=== PATIENT | female | born 2000 | race Hispanic/Latino ===

== ENCOUNTER 2024-11-29 01:51 | Emergency (ER) | payer SELFPAY ==
--- NOTE | ~2024-11-29 | US_ITS ---
Pelvic ultrasound. Clinical History: Torsion Technique: Realtime transabdominal scanning of the pelvis was performed. Color flow Doppler and Doppl er spectral analysis were performed. Findings: The uterus is anteverted. The endometrial stripe has a thickness of 4 mm. No focal mass is identified. The right ovary measures 2.6 x 3 0.4, 3.7 cm. No significant right ovarian or adnexal mass is seen. The left ovary measures 2.7 x 2.3 x 2.2 cm. No significant left ovarian or adnexal mass is seen. There is probable vascular flow in both ovaries on Doppler spectral analysis. There is no evidence of free fluid in the cul de sac. Impression: No definite abnormality seen. No distinct evidence for torsion. Reviewed, dictated and finalized at [facility]. Impression: No definite abnormality seen. No distinct evidence for torsion.
--- NOTE | ~2024-11-29 | CT_ITS ---
Non-contrast CT scan of the Abdomen and Pelvis Clinical indication: Abdominal pain Technique: 2.5 mm axial scans were obtained through the abdomen and pelvis without intravenous or or al contrast. Dose reduction technique was used on this scan by utilizing automated exposure control a nd iterative reconstruction technique. The dose-length product (DLP) was 679.60 mGy-cm. Findings: Images through the lung bases reveal no abnormalities. 5 mm left UVJ stone present, with mild left hydroureteronephrosis. Right kidney and right ureter are unremarkable. The liver, spleen, pancreas, gallbladder, and adrenals appear normal. There is no aortic aneurysm. There is no evidence of bowel obstruction. Images through the pelvis were performed. There is no evidence of ascites or lymphadenopathy. Urinary bladder unremarkable. No pelvic mass evident. Impression: 5 mm left UVJ stone with mild left hydroureteronephrosis. Reviewed, dictated and finalized at [facility]. Impression: 5 mm left UVJ stone with mild left hydroureteronephrosis.
[2024-11-29 01:58] VITALS: BP 128/89; PULSE 96; RESP 24; TEMP 36.6; O2SAT 100
--- NOTE | 2024-11-29 02:07 | PC.NURSE ---
Call placed to radiology to page out US for r/o ovarian torsion.
--- NOTE | 2024-11-29 02:08 | ED_ITS ---
HPI - General Adult General Chief complaint: Abdominal Pain Stated complaint: abd pain and vomiting Time Seen by Provider: 11/29/24 02:00 History of Present Illness HPI narrative: 24-year-old female history of ovarian cyst presents to the emergency department for evaluation for acute onset of left lower quadrant pain. Patient denies any prior history kidney stones. Patient is uncomfortable upon arrival emergency department. Patient is having associated nausea vomiting. Related Data Allergies Allergy/AdvReac Type Severity Reaction Status Date / Time No Known Allergies Allergy Verified 11/29/24 02:05 Review of Systems 2 Review of Systems: All systems reviewed & are unremarkable except as noted in HPI and below Exam 2 Narrative: APPEARANCE: Uncomfortable appearing HEAD: normocephalic, atraumatic. EYES: PERRLA/EOMI, conjunctivae clear. NOSE: Normal no drainage EARS:TMS clear with good light reflex. THROAT: Pharynx clear, no exudate. NECK: Supple. No adenopathy, no masses. RESPIRATORY: Airway patent, respirations nonlabored. Clear to auscultation bilaterally, no rales, rhonchi, wheezing. CARDIOVASCULAR: Regular rate and rhythm without murmurs rubs or gallops. ABDOMINAL: Left lower quadrant tenderness to palpation MUSCULOSKELETAL: Moves all extremities. Strength/ROM intact, No edema, No calf tenderness. NEURO: Alert. Cranial nerves II through XII intact. Good gait. Good coordination SKIN: Warm, dry. Normal Color Course Vital Signs Vital signs: Vital Signs Temperature 97.9 F 11/29/24 01:58 Pulse Rate 96 11/29/24 01:58 Respiratory Rate 24 H 11/29/24 01:58 Blood Pressure 128/89 11/29/24 01:58 Pulse Oximetry 100 11/29/24 01:58 Oxygen Delivery Room Air 11/29/24 01:58 Temperature 97.9 F 11/29/24 01:58 Pulse Rate 83 11/29/24 07:01 Respiratory Rate 13 11/29/24 07:01 Blood Pressure 119/69 11/29/24 07:01 Pulse Oximetry 99 11/29/24 07:01 Oxygen Delivery Room Air 11/29/24 01:58 Medical Decision Making [facility] Narrative Medical decision making narrative: 24-year-old female presents emergency department for evaluation for left lower quadrant pain. Patient did require multiple doses of pain medication. Ultrasound was negative for torsion. CT was positive for 5 in labor UVJ stone. Urine was positive for blood negative for infection. Patient has no acute abnormalities on her CMP other than potassium of 3.1. Patient did feel improved with treatment after the IV Toradol. Patient was comfortable plan for discharge and close follow-up. Differential Diagnosis Differential Diagnosis: Ovarian torsion, UTI, colitis, diverticulitis, appendicitis, ureteral calculi Vital Signs Vital Signs: Vital Signs Temperature 97.9 F 11/29/24 01:58 Pulse Rate 96 11/29/24 01:58 Respiratory Rate 24 H 11/29/24 01:58 Blood Pressure 128/89 11/29/24 01:58 Pulse Oximetry 100 11/29/24 01:58 Oxygen Delivery Room Air 11/29/24 01:58 Temperature 97.9 F 11/29/24 01:58 Pulse Rate 83 11/29/24 07:01 Respiratory Rate 13 11/29/24 07:01 Blood Pressure 119/69 11/29/24 07:01 Pulse Oximetry 99 11/29/24 07:01 Oxygen Delivery Room Air 11/29/24 01:58 Lab Data Lab results reviewed: Yes I reviewed the patient's lab results. 11/29/24 02:07 11/29/24 02:07 Labs: Lab Results 11/29/24 11/29/24 Range/Units 02:07 05:16 WBC 10.7 H (4.5-10.0) K/mm3 RBC 4.69 (4.2-5.4) M/mm3 Hgb 13.3 (12.0-15.0) g/dL Hct 39.9 (37.0-47.0) % MCV 85.1 (80-100) fl MCH 28.4 (26-34) pg MCHC 33.3 (32-36) g/dl RDW 12.4 (11.5-14.5) % Plt Count 350 (150-375) k/mm3 MPV 9.3 (7.4-10.4) fl Immature Gran % (Auto) 0.4 (0-0.5) % Neut % (Auto) 45.3 L (45.5-73.1) % Lymph % (Auto) 43.9 (18.3-44.2) % [place] % (Auto) 8.6 H (2.6-8.5) % Eos % (Auto) 1.5 (0-4.4) % Baso % (Auto) 0.3 (0.2-1.2) % Lymph # (Auto) 4.68 H (0.9-3.2) K/mm3 [place] # (Auto) 0.9 H (0.1-0.6) K/mm3 Eos # (Auto) 0.2 (0-0.3) K/mm3 Baso # (Auto) 0.0 (0.0-0.1) K/mm3 Abs Immat Gran (auto) 0.04 H (0.00-0.031) K/mm3 Absolute Neuts (auto) 4.8 (1.3-6.7) K/mm3 Absolute Nucleated RBC 0.000 (0.0-0.012) K/mm3 Nucleated RBC % 0.0 (0.0-0.2) % PT 13.4 (11.1-14.7) Seconds INR 1.0 APTT 26.6 (22.3-36.8) Seconds Sodium 139 (137-145) mmol/L Potassium 3.1 L (3.4-5.0) mmol/L Chloride 104 (98-107) mmol/L Carbon Dioxide 22 (22-30) mmol/L Anion Gap 13 H (4-12) mmol/L BUN 16 (7-17) mg/dL Creatinine 0.66 L (0.7-1.0) mg/dL Estim Creat Clear Calc Not Reportable Estimated GFR > 60 (59 - ) Glucose 112 H (65-110) mg/dL Calcium 9.0 (8.4-10.2) mg/dL Total Bilirubin 0.4 (0.2-1.3) mg/dL AST 35 (14-36) U/L ALT 47 H (6-35) U/L Alkaline Phosphatase 123 (38-126) U/L Total Protein 8.4 H (6.3-8.2) g/dL Albumin 4.6 (3.5-5.1) g/dL Lipase 80 (23-300) U/L Serum HCG, Qual Negative Urine Color Dark yellow (Yellow) Urine Appearance Cloudy H (Clear) Urine pH 5.5 (5.0-9.0) Ur Specific [place] 1.032 (1.001-1.035) Urine Protein 1+ H (Negative) mg/dL Urine Glucose (UA) Negative (Negative) mg/dL Urine Ketones Trace H (Negative) mg/dL Ur Blood (Man) 3+ H (Negative) Urine Nitrate Negative (Negative) Urine Bilirubin Negative (Negative) Urine Urobilinogen 1.0 (<2.0) mg/dL Add Ur Microanalysis Reviewed Leukocyte Esterase Rfl Trace H (Negative) JOSE/UL Urine RBC >100 H (0-2) /hpf Urine WBC 0-5 (0-3) /hpf Ur Squamous Epith Cells Few (Few) /hpf Urine Bacteria Rare /hpf Urine Casts 0-2 POC Urine HCG, Qual Negative (Negative) Imaging Data Radiologist's impression: Impressions Pelvis Ultrasound 11/29/24 05:27 Impression: No definite abnormality seen. No distinct evidence for torsion. Abdomen/Pelvis CT 11/29/24 05:33 Impression: 5 mm left UVJ stone with mild left hydroureteronephrosis. Discharge Plan Discharge Clinical Impression: Calculi, ureter Patient Disposition: Home Condition: Stable Instructions: Antibiotic Form, Hydrocodone/Acetaminophen (By mouth), Kidney Stones (ED), How to Strain Your Urine (ED) Additional Instructions: Ibuprofen for pain control, [place] as needed for additional pain control. Zofran for nausea control. Strain your urine as instructed. Have close follow-up with Urology. If you have any worsening symptoms, please call or return to the emergency department. Do not breast feed while you are taking narcotic pain medications, the narcotic pain medications are expressed to the breast milk and may make the baby tired. Patient Language: Slovenian Prescriptions: New hydrocodone-acetaminophen 5-325 mg tablet 1 tablet PO Q12H PRN (Reason: pain) Qty: 14 0RF ondansetron 4 mg tablet,disintegrating 4 mg PO Q8H PRN (Reason: nausea and vomiting) Qty: 14 0RF Follow-up/Referrals: Diane Velasquez MD [Physician] - PHYSICIAN,PHYSICAL SECURITY SPECIALIST [Primary Care Provider] -
[2024-11-29 02:13] LABS: Basophils Percent Auto 0.3 % (0.2-1.2); Eosinophils Absolute Auto 0.2 K/mm3 (0-0.3); Eosinophils Percent Auto 1.5 % (0-4.4); Hematocrit 39.9 % (37.0-47.0); Hemoglobin 13.3 g/dL (12.0-15.0); Immature Granulocyte Absolute 0.04 K/mm3 (0.00-0.031); Immature Granulocyte Percent A 0.4 % (0-0.5); Lymphocytes Absolute Auto 4.68 K/mm3 (0.9-3.2); Lymphocytes Percent Auto 43.9 % (18.3-44.2); Mean Corpuscular HGB Conc 33.3 g/dl (32-36); Mean Corpuscular Hemoglobin 28.4 pg (26-34); Mean Corpuscular Volume 85.1 fl (80-100); Mean Platelet Volume 9.3 fl (7.4-10.4); Monocytes Absolute Auto 0.9 K/mm3 (0.1-0.6); Monocytes Percent Auto 8.6 % (2.6-8.5); Neutrophils Absolute Auto 4.8 K/mm3 (1.3-6.7); Neutrophils Percent Auto 45.3 % (45.5-73.1); Platelet Count Result 350 k/mm3 (150-375); Red Blood Count 4.69 M/mm3 (4.2-5.4); Red Cell Distribution Width 12.4 % (11.5-14.5); White Blood Count 10.7 K/mm3 (4.5-10.0)
[2024-11-29] MEDS: HYDROmorphone HCL INJ (*CRX) 2 MG/ML VIAL 1 MG IV PUSH ×3 (02:14→05:22)
[2024-11-29] MEDS: ONDANSETRON INJ 4 MG/2 ML VIAL IV PUSH (02:15)
[2024-11-29] MEDS: LACTATED RINGERS 1,000 ML 999 ML IV CONT ×2 (02:15→05:16)
[2024-11-29 02:25] LABS: Prothrombin Time 13.4 Seconds (11.1-14.7)
[2024-11-29 02:26] LABS: Partial Thromboplastin Time 26.6 Seconds (22.3-36.8)
[2024-11-29 02:27] LABS: Alanine Aminotransferase 47 U/L (6-35); Albumin Level 4.6 g/dL (3.5-5.1); Alkaline Phosphatase 123 U/L (38-126); Anion Gap 13 mmol/L (4-12); Aspartate Amino Transferase 35 U/L (14-36); Bilirubin,Total 0.4 mg/dL (0.2-1.3); Blood Urea Nitrogen 16 mg/dL (7-17); Carbon Dioxide 22 mmol/L (22-30); Chloride 104 mmol/L (98-107); Estimated Glomerular Filt Rate > 60; Glucose 112 mg/dL (65-110); Lipase 80 U/L (23-300); Potassium 3.1 mmol/L (3.4-5.0); Sodium 139 mmol/L (137-145); Total Protein 8.4 g/dL (6.3-8.2)
--- NOTE | 2024-11-29 02:40 | PC.NURSE ---
Spoke with Milan who states she will call the review manager collections associate to determine if a nurse can come out to get the patient admitted and then call ED back.
--- NOTE | 2024-11-29 02:54 | PC.NURSE ---
Milan states that Suri will be dispatched out to assist with admission.
[2024-11-29 03:05] LABS: Serum Qual hCG Negative
[2024-11-29 03:06] LABS: SPREG INTERNAL CONTROL Positive
--- NOTE | 2024-11-29 03:42 | PC.NURSE ---
RN asked pt if she can give us a urine sample. Pt states at this time she is unable to pee.
[2024-11-29 03:43] VITALS: BP 121/72; PULSE 78; RESP 18; O2SAT 100
[2024-11-29 04:54] VITALS: BP 115/65; PULSE 72; RESP 12; O2SAT 99
--- NOTE | 2024-11-29 04:54 | PC.NURSE ---
RN wnt into pt room to see if pt can give us a urine sample, pt is currently breast pumping at this time but states she will try once she is done.
[2024-11-29 05:18] LABS: BEDSIDEPREGUCG Negative (Negative)
[2024-11-29] MEDS: KETOROLAC 15 MG/ML VIAL (*BKC) IV PUSH (05:40)
[2024-11-29 05:56] LABS: Add Urine Microscopic? YES; Appearance Urine Cloudy (Clear); Bacteria Urine Rare /hpf; Bilirubin Urine Negative (Negative); Blood Urine 3+ (Negative); Color Urine Dark Yellow (Yellow); Glucose Urine UA Negative (Negative); Ketones Urine Trace mg/dL (Negative); Leukocyte Esterase Ur Trace LEU/UL (Negative); Need Manual Microscopic Reviewed; Nitrate Urine Negative (Negative); Non Pathogenic Casts 0-2; Protein Urine 1+ mg/dL (Negative); RBC Urine >100 /hpf (0-2); Specific Grav Ur 1.032 (1.001-1.035); Squamous Epithelial Cell Urine Few /hpf (Few); WBC Urine 0-5 /hpf (0-3); pH Urine 5.5 (5.0-9.0)
[2024-11-29 06:15] VITALS: BP 112/62; PULSE 83; RESP 15; O2SAT 99
[2024-11-29] MEDS: HYDROcodone/acetaminophen (*CRX) 5-325 MG TABLET 1 TAB PO (06:38)
[2024-11-29 07:01] VITALS: BP 119/69; PULSE 83; RESP 13; O2SAT 99
== END 2024-11-29 07:02 | disposition home or self-care (01) ==
PROVIDERS: Emergency Provider Emergency Medicine
DX: N20.1 Calculus of ureter (principal)
CPT/HCPCS: 36415; 74176; 76856; 80053; 81001; 81025; 83690; 84703; 85025; 85610; 85730; 96361; 96374; 96375; 96376; 99284; A9270; J1171; J1885; J2405; J7120

== ENCOUNTER 2025-03-01 16:45 | Emergency (ER) | payer OTHER, SELFPAY ==
--- OUTSIDE RECORDS SUMMARY | 2024-01-01 06:30 | XMS_ITS ---
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 Medications Medication SIG (Take, Route, Frequency, Duration) Notes Start Date End Date Status Omeprazole 20 MG 1 capsule 30 minutes before morning meal Orally Once a day; Duration: 30 day(s) 02/27/2022 Not-Taking Nystatin 005440 UNIT/GM 1 application un jovana breasts Twice a day; Duration: 14 days 10/21/2022 Not-Taking Encounters Encounter Location Date Provider Diagnosis [facility] [id number] [id number] 01/01/2024 RANJEET DE MYRIAM Plan Of Treatment No Information Progress Notes * Portia LENNONB:2000 (24 yo F)Acc No.[id number]:01/01/2024 Progress Note Patient: Angel GUANa Provider: Carrington Arita CNP :2000 A ge:23 Y S ex:Female Date:01/01/2024 [facility]:[address] [place] [address] Pcp:Alexi Bay Subjective: * Chief Complaints: * 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 L ast mammogram . N/A. A bnormal pap smear A ny history of abnormal pap smears? N o. D ate of Last Period L MP 09/21/2023. A ky history of Sexually Transmitted Diseases H istory of STD's D enied. Contraceptive History S ubdermal Implant. M enarche: A ge 1 4. M enstrual History F requency of period 2 8, Number of days 6 . S exual Practices A re you sexually active? Y es, type of sex V aginal, number of current partners 1 . * OB History: G ravity (# Pregnancies) 1 . . P resent 2023. * Medications: N ot-Taking/PRN Nystatin 353731 UNIT/GM Powder 1 application under breasts Twice a day , Not-Taking/PRN Omeprazole 20 MG Capsule Delayed Release 1 capsule 30 minutes before morning meal Orally Once a day Objective: * Vitals: Assessment: Plan: * Treatment: * Images: Billing Information: * Visit Code: * Procedure Codes: * Electronic signature of ALIZE HUNTER APN on 03/01/2025 at 06:44 PM EDT Sign off status: Pending Visit Status: C HK (Check Out) * Provider: Carrington Arita CNP Date: 0 01/01/2024 Generated for Laila becker/Vincent/Rik on: 03/01/2025 06:44 PM EDT
--- OUTSIDE RECORDS SUMMARY | 2024-02-02 10:15 | XMS_ITS ---
Author Organization [facility] Administratio n Address [address] [place] [address] Care Team Providers Care Agile Business Analyst Name Role Phone Alexi Bay Primary Care Provider Valencia Gonzalez REASON FOR VISIT PNC at 19 weeks 1day, Labs printed Medications Medication SIG (Take, Route, Frequency, Duration) Notes Start Date End Date Status Omeprazole 20 MG 1 capsule 30 minutes before morning meal Orally Once a day; Duration: 30 day(s) 02/27/2022 Not-Taking Nystatin [id number] UNIT/GM 1 application un jovana breasts Twice a day; Duration: 14 days 10/21/2022 Not-Taking Encounters Encounter Location Date Provider Diagnosis [id number] [place], [place] [id number] 02/02/2024 Valencia Antony Plan Of Treatment No Information Progress Notes * Portia LENNONB:2000 (24 yo F)Acc No.[id number]:02/02/2024 Progress Note Patient: Wilmer ALAINA Joy Provider: Karla Fox CNM :2000 A ge:23 Y S ex:Female Date:02/02/2024 Address:[address] Pcp:Alexi Bay Subjective: * Chief Complaints: * 1 . PNC at 19 weeks 1day. 2. Labs printed. * HPI: A ntepartum: This is aThis is margarito lowery Preparation: Chart Preparation Questions D o you have a personal goal set with your provider: N o R ate your progress in meeting your personal goal: 2 (Close to Goal) S tanner your last visit, have you seen an [facility] dental provider: if yes, see [facility] folder N o S tanner your last visit, have you seen an [facility] behavioral health provider: if yes, see [facility] folder N o H ave you been to the ED or specialist since your last vist: N o H ave you done any labs or diagnostic tests since last visit: N o D o you need any refill medication or referral: N o A re you taking any other new medicine, prescription or OTC, since your last visit N o P atient is due for: O ther C RC Screening N o P ending Referral(s) Updated: N ot Applicable Yes No No D o you feel safe at home? Y es S marcia Encounter: COVID 19 Screening : F ever now or fever in the last 2 weeks: N o . R espiratory symptoms: N o . M yalgias/Body aches N o . G astrointestinal Distress N o . O ther-please specify . H ave you had contact with a person (s) with suspected or confirmed coronavirus infection, or that is currently quarantined with symptoms but has not been tested? ? N o . H ave you had tested Covid 19 before N o . H ave you received the Covid vaccine Y es Vaccinated H ave you recently traveled out of the country? Y es Information/Disposition : . 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 N /A A bnormal pap smear A ny history of abnormal pap smears? N o D ate of Last Period L MP 0 09/21/2023 A ny history of Sexually Transmitted Diseases H istory of STD's D enied C ontraceptive History S ubdermal Implant. M enarche: A ge 1 4 M enstrual History F requency of period 2 8 N umber of days 6 S exual Practices A re you sexually active? Y es t ype of sex V aginal n umber of current partners 1 * OB History: G ravmaximo (# Pregnancies) 1 . . P resent 2023. * Medications: N ot-Taking/PRN Nystatin 930601 UNIT/GM Powder 1 application under breasts Twice a day , Not-Taking/PRN Omeprazole 20 MG Capsule Delayed Release 1 capsule 30 minutes before morning meal Orally Once a day Objective: * Vitals: Assessment: Plan: * Treatment: * Preventive Medicine: EDUCATION: B arrier to learning . . F amily verbalizes understanding of instructions given?.. N utritional Counseling Patient counseled . * Images: Billing Information: * Visit Code: * Procedure Codes: * Electronic signature of Dale Antony on 03/01/2025 at 06:44 PM EDT Sign off status: Pending Visit Status: V oid (Void) * Provider: Karla Fox CNM Date: 0 02/02/2024 Generated for Laila Corey/Rik on: 0 03/01/2025 06:44 PM EDT History and Physical Notes * HPI (History of Present Illness) Category Sub-Category Detail Notes Category Not es Depression Screening PHQ-2 In last two w eeks have you been bothered by Little interest or pleasure in doing things: No Chart Preparation Chart Preparation Questions Do you have a personal goal set with your provider:: No Rate your progress in meeting your perso nal goal:: 2 (Close to Goal) Since your last visit, have you seen an [facility] dental provider: if yes, see [facility] folder: No Since your last visit, have you seen an [facility] behavioral health provider: if yes, see [facility] folder: No Have you been to the ED or specialist si nce your last vist:: No Have you done any labs or diagnostic syed ts since last visit:: No Do you need any refill medication or ref erral:: No Are you taking any other new medicine, prescription or OTC, since your last visit: No Patient is due for: : Other CRC Screening: No Pending Referral(s) Updated:: Not Applic able Yes No No Do you feel safe at home?: Yes Same Day Encounter Information/Disposition :: . COVID 19 Screening : Fever now or fever in the l ast 2 weeks:: No . Respiratory symptoms:: No . Myalgias/Body aches: No . Gastrointestinal Distress: No . Other-please specify: . Have you had contact with a person (s) with suspected or confirmed coronavirus infection, or that is currently quarantined with symptoms but has not been tested? ?: No . Have you had tested Covid 19 before: No . Have you received the Covid vaccine: Yes Vaccinated Have you recently traveled out of the [facility]?: Yes [facility] Self Management Goal My Personal Goals:: HEALTH Y DIET Confidence Level:: 1 - Maintaining Goal
--- OUTSIDE RECORDS SUMMARY | 2024-03-07 06:15 | XMS_ITS ---
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 New patient. * Medical History: Objective: * Vitals: Assessment: Plan: * Treatment: Forms: * Images: Billing Information: * Visit Code: * Procedure Codes: * Electronic signature of Joanne Cárdenas M.S on 03/01/2025 at 06:44 PM EDT Sign off status: Pending Visit Status: N /S (No-Show) * Provider: Molly Cárdenas Date: 1 Generated for Laila becker/Vincent/Rik on: 0 03/01/2025 06:44 PM EDT
--- OUTSIDE RECORDS SUMMARY | 2024-08-18 08:00 | XMS_ITS ---
Author Organization [facility] Administratio n Address [address] [place] [address] Care Team Providers Care Kennel Keeper Name Role Phone Alexi Bay Primary Care Provider Evelyn Faulkner Unavailable [phone] REASON FOR VISIT rv/ fp/ bc consult Encounters Encounter Location Date Provider Diagnosis [id number] [place], [place] [id number] 08/18/2024 Evelyn Faulkner Plan Of Treatment No Information Progress Notes * Elpidio LENNON:2000 (24 yo F)Acc No.[id number]:08/18/2024 Progress Notes Patient: Joy GUAN Provider: Valencia Faulkner CNM :2000 A ge:23 Y S ex:Female Date:08/18/2024 [address] [place] [address] [facility] Pcp:Alexi Bay Subjective: * Chief Complaints: * 1 . Rv/ fp/ bc consult. * Medical History: Objective: * Vitals: Assessment: Plan: * Treatment: * Images: Billing Information: * Visit Code: * Procedure Codes: * Electronic signature of Timoteo Faulkner CNM on 03/01/2025 at 06:44 PM EDT Sign off status: Pending Visit Status: N /S (No-Show) * Provider: Valencia Faulkner CNM Date: 0 08/18/2024 Generated for Laila becker/Vincent/Rik on: 0 03/01/2025 06:44 PM EDT
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
--- NOTE | ~2025-03-01 | XR_ITS ---
XR shoulder LT min 2V 03/01/2025 20:01 INDICATION: Left shoulder pain PROCEDURE: 3 views left shoulder COMPARISON: No prior studies for comparison. FINDINGS: Fracture, dislocation or subluxation is not identified. The soft tissues appear within normal limits. No foreign bodies are identified. IMPRESSION: 1: NO ACUTE BONE OR JOINT ABNORMALITY IDENTIFIED. Reviewed, dictated and finalized at location O.
[2025-03-01 17:09] VITALS: BP 105/74; PULSE 68; RESP 18; TEMP 36.9; O2SAT 99
--- OUTSIDE RECORDS SUMMARY | 2025-03-01 17:45 | XMS_ITS | Patient Health Record ---
Author Organization [facility] Administ[facility] n Address [address] [place] [address] Care Team Providers Care Mosaic Worker Name Role Phone Phu Alexi Primary Care Provider Evelyn Faulkner Unavailable [phone] Bren Cárdenas Unavailable [phone] Allergies No Known Allergies Reason For Referral No Information Medications Medication SIG (Take, Route, Frequency, Duration) Notes Start Date End Date Status Omeprazole 20 MG 1 capsule 30 minutes before morning meal Orally Once a day; Duration: 30 day(s) 02/27/2022 Not-Taking Nystatin 540070 UNIT/GM 1 application un jovana breasts Twice a day; Duration: 14 days 10/21/2022 Not-Taking Social History Tobacco Use: Social History Observation Description Date Details (start date - stop date) Current some da y smoker NA - NA Tobacco Use: Question Answer Notes Are you a: current smoker Alcohol Question Answer Notes Did you have a drink contain ing alcohol in the past year? Yes How often did you have a dri nk containing alcohol in the past year? Monthly or less (1 point) How many drinks did you have on a typical day when you were drinking in the past year? 1 or 2 (0 points) How often did you have six o r more drinks on one occasion in the past year? Never (0 points) Points 1 Interpretation Negative Smoking Status: Question Answer Notes Are you a: current smoker How often do you smoke Cigarettes? some days, bu t not every day How many cigarettes a day do you smoke? 5 or les s How soon after you wake up d o you smoke your first cigarette? 31-60 min Are you interested in quitting? Thinking about q uitting Tobacco Control (Standard) Question Answer Notes Tobacco use: Current some day smoker Tobacco use: Current some day smoker Tobacco use: Current some day smoker Problems Problem Type SNOMED Code ICD Code Onset Dates Problem Status W/U Status Risk Notes Problem Patient currently (01521277) state, incidental (V22.2) Active confirm Problem Depression (432181706) Depression (F32.9) Active confirmed Problem Gastroduodenitis (261532687) Gastritis without bleeding, unspecified chronicity, unspecified gastritis type (K29.70) Active confirmed Plan Of Treatment Pending Test Test Name Order Date H. Pylori Breath Test 02/27/2022 Anatomy scan 02/02/2024 Urinalysis, Routine 02/27/2022 TSH 02/27/2022 Vitamin D, 25-Hydroxy 02/27/2022 Lipid Panel 02/27/2022 Comp. Metabolic Panel (14) 02/27/2022 CBC, Platelet; No Differential targeted right breast ultrasound 023 Insurance Providers Payer Name Payer Address Payer Phone Subscriber Number Group Number Insured Name Patient Relationship to Insured Coverage Start Date Coverage End Date [facility] [address] [place] [address] [id number] Joy Lennon Self - patient is the insured 4 Medications Administered Medication Instructions Date of Administration Dosage Notes Lidocaine 09/16/2023 2 mL pt removal Nexplanon 04/15/2022 1 units Xylocaine 1% 04/15/2022 1 mL Medical (General) History Medical History History ICD Code Anxiety Depression Surgical History Surgery Date(Month/Year) Appendectomy tonsillectomy Hospitalization History Reason Date(Month/Year) See above surgery
[2025-03-01] MEDS: HYDROcodone/acetaminophen (*CRX) 5-325 MG TABLET 1 TAB PO (19:18)
[2025-03-01 19:34] LABS: BEDSIDEPREGUCG Negative (Negative)
--- NOTE | 2025-03-01 19:35 | PC.NURSE ---
Patient actively vomiting-HOME STAGER Jamia made aware
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
[2025-03-01] MEDS: ONDANSETRON HCL ODT 4 MG TABLET PO (19:43)
[2025-03-01 21:15] VITALS: BP 103/58; PULSE 60; RESP 16; TEMP 36.7; O2SAT 98
[2025-03-01 21:15] LABS: Hematocrit 39.5 % (37.0-47.0); Hemoglobin 13.0 g/dL (12.0-15.0); Immature Granulocyte Percent A 0.4 % (0-0.5); Lymphocytes Absolute Auto 3.19 K/mm3 (0.9-3.2); Mean Corpuscular HGB Conc 32.9 g/dl (32-36); Mean Corpuscular Hemoglobin 28.0 pg (26-34); Mean Corpuscular Volume 85.1 fl (80-100); Nucleated Red Blood Cells Absolute Auto 0.000 K/mm3 (0.0-0.012); Nucleated Red Blood Cells Perc 0.0 % (0.0-0.2); Platelet Count Result 344 k/mm3 (150-375); Red Blood Count 4.64 M/mm3 (4.2-5.4); White Blood Count 8.1 K/mm3 (4.5-10.0)
[2025-03-01] MEDS: MORPHINE SULFATE (*CRX) 4 MG/ML INJ IV PUSH (21:18)
[2025-03-01 21:24] LABS: Alanine Aminotransferase 14 U/L (6-35); Albumin Level 4.0 g/dL (3.5-5.1); Alkaline Phosphatase 137 U/L (38-126); Anion Gap 7 mmol/L (4-12); Aspartate Amino Transferase 18 U/L (14-36); Bilirubin,Total 0.3 mg/dL (0.2-1.3); Blood Urea Nitrogen 14 mg/dL (7-17); Calcium 8.7 mg/dL (8.4-10.2); Carbon Dioxide 25 mmol/L (22-30); Chloride 105 mmol/L (98-107); Estimated CRCL calculation 129 ml/min; Estimated Glomerular Filt Rate > 60; Glucose 99 mg/dL (65-110); Potassium 3.8 mmol/L (3.4-5.0); Sodium 137 mmol/L (137-145); Total Protein 7.5 g/dL (6.3-8.2)
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
--- NOTE | 2025-03-01 22:57 | PC.NURSE ---
Patient has agreed to transfer [facility] ED
[2025-03-01 23:25] LABS: Pregnancy On Board Control Positive
[2025-03-01 23:28] LABS: Add Urine Microscopic? YES; Appearance Urine Cloudy (Clear); Glucose Urine UA Negative (Negative); Leukocyte Esterase Ur Trace LEU/UL (Negative); Nitrate Urine Negative (Negative); Non Pathogenic Casts 0-2; Specific Grav Ur 1.035 (1.001-1.035)
[2025-03-02 00:12] VITALS: BP 110/63; PULSE 69; RESP 19; O2SAT 97
[2025-03-02] MEDS: MORPHINE SULFATE (*CRX) 4 MG/ML INJ IV PUSH (01:05)
[2025-03-02 01:14] VITALS: BP 110/63; PULSE 69; RESP 19; O2SAT 97
== END 2025-03-02 01:06 | disposition short-term general hospital (02) ==
PROVIDERS: Emergency Provider Registered Nurse
DX: S06.0X0A Concussion without loss of consciousness, initial encounter (principal); S22.060A Wedge compression fracture of T7-T8 vertebra, initial encounter for closed fracture; S39.012A Strain of muscle, fascia and tendon of lower back, initial encounter; R20.0 Anesthesia of skin; V49.50XA Passenger injured in collision with unspecified motor vehicles in traffic accident, initial encounter
CPT/HCPCS: 36415; 70450; 72125; 72128; 72131; 73030; 80053; 81001; 81025; 85025; 87086; 96374; 99285; A9270; J2270; L0140